=== PATIENT | male | born 1945 | race Caucasian/White ===

== ENCOUNTER 2024-12-07 09:22 | Outpatient (REF) | payer OTHER, SELFPAY ==
--- OUTSIDE RECORDS SUMMARY | 2024-12-07 10:13 | XMS_ITS | Continuity of Care Document ---
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 It does not include entries that were removed or entered in error. Problem Status Onset Date Problem Type Date of Resolution Comments Source Visual impairment Active 09/28/19 22 Condition Jun 13, 2022 Entered By: HUNG CARROLL Comment: followed by optometry [facility] Essential hypertension Active 09/28/19 16 Condition [facility] Hypertensive disorder Active 09/28/19 13 Condition [facility] Hyperlipidemia Active 09/28/19 09 Condition [facility] Routine General Medical Examination at a Health Care Facility * (ICD-9-CM V70.0) Active 09/28/19 08 Condition [facility] Environment contains chemical hazards Active Condition [facility] Exposure to potentially hazardous substance ([facility] [id number]) Active Condition Jan 05 4 Entered By: ADRIEL ROCHA Comment: Entered automatically through [facility] Problem List documentation program [facility] Hearing Loss, Partial * (ICD-9-CM 389.9) Active Condition [facility] Diagnosis: ICD-10-CM H54.7 Unspecified visual loss Active Diagnosis [facility] Diagnosis: ICD-10-CM Z46.0 Encounter for fit/adjst of spectacles and contact lenses Active Diagnosis [facility] Diagnosis: ICD-10-CM Z96.1 Presence of intraocular lens Active Diagnosis [facility] Medications Combined list of outpatient medications from Department of Defense and Veterans Affairs facilities.Medications provided include 1) outpatient medications from the last 15 months, and 2) patient-reported medications. Medication Details Route Status Patient Instructions Prescription Expires Prescription Number Last Dispense Date Ordering Provider Order Date Order Qty Source HYDROCHLORO THIAZIDE 25MG TAB TAKE ONE TABLET BY MOUTH EVERY DAY ORAL ACTIVE CARLY,HOW ALDAIR D 2012 [facility] LOVASTATIN 40MG TAB TAKE ONE TABLET BY MOUTH AT BEDTIME ORAL ACTIVE CARLY,HOW ALDAIR D 2009 [facility] TRIAMTERENE CAP,ORAL TAKE 37.5MG BY MOUTH EVERY DAY ORAL ACTIVE CARLY,HOW ALDAIR D 2012 [facility] Immunizations Combined list of available immunizations from the Department of Defense and Veterans Affairs facilities. Immunization Series Date Given Administered By Site Reaction Lot Number CVX Code Drug Clinical Trials Systems Administrator Status Comments Source COVID-19 (MODERNA), MRNA, LNP-S, PF, 50 MCG/0.5 ML (AGES 12+ YEARS) 3 2023 KIP OLIVEIRA RIGHT DELTO ID [id number] 312 complet ed [facility] INFLUENZA, HIGH-DOSE, TRIVALENT, PF 2023 KIP OLIVEIRA LEFT DELTO ID [id number] 135 complet ed [facility] RSV, BIVALENT, PROTEIN SUBUNIT RSVPREF, DILUENT RECONSTITUTED , 0.5 ML, PF 2023 KIP OLIVEIRA LEFT DELTO ID [id number] 305 complet ed sterile water diluent component [id number] [facility] INFLUENZA VACCINE, QUADRIVALENT, ADJUVANTED 2021 205 complet ed [facility] INFLUENZA, UNSPECIFIED FORMULATION 2020 88 complet ed [facility] COVID-19 (MODERNA), MRNA, LNP-S, PF, 100 MCG/0.5 ML DOSE 2 2020 207 complet ed MOD; [id number]; 1 [facility] COVID-19 (MODERNA), MRNA, LNP-S, PF, 100 MCG/0.5 ML DOSE 1 2020 207 complet ed MOD; [id number]; 1 [facility] TD (ADULT), 2 LF TETANUS TOXOID, PRESERVATIVE FREE, ADSORBED 2018 09 complet ed Site: Right Deltoid [facility] ZOSTER RECOMBINANT 2 2017 187 complet ed yes [facility] PNEUMOCOCCAL POLYSACCHARID E [id number] 2017 33 complet ed [facility] INFLUENZA, SEASONAL, INJECTABLE 2017 141 complet ed [facility] ZOSTER RECOMBINANT 1 2017 187 complet ed yes [facility] PNEUMOCOCCAL CONJUGATE PCV 13 2016 133 complet ed [facility] FLU,3 YRS (HISTORICAL) 2015 88 complet ed [facility] FLU,3 YRS (HISTORICAL) 2014 88 complet ed [facility] FLU,3 YRS (HISTORICAL) 2012 88 complet ed [facility] ZOSTER (HISTORICAL) 2012 121 complet ed [facility] FLU,3 YRS (HISTORICAL) 2010 88 complet ed [facility] FLU,3 YRS (HISTORICAL) 2009 88 complet ed [facility] NOVEL INFLUENZA-H1N 1-09, ALL FORMULATIONS 2009 128 complet ed [facility] FLU,3 YRS (HISTORICAL) 2008 88 complet ed [place] [facility] PNEUMOCOCCAL, UNSPECIFIED FORMULATION 2008 109 complet ed [facility] TDAP 2008 115 complet ed Right Deltoid [facility] FLU,3 YRS (HISTORICAL) 2007 88 complet ed [facility] FLU,3 YRS (HISTORICAL) 2006 88 complet ed [facility] influenza virus vaccine, split virus (incl. purified surface antigen)-reti red CODE 1 2004 Unknown, Provider [id number] Sanofi Pasteur ([facility]) complet ed influenza virus vaccine, split virus (incl. purified surface antigen)- retired CODE DoD anthrax vaccine 6 2003 Unknown, Provider [id number] [facility]) complet ed anthrax vaccine DoD typhoid Vi capsular polysaccharid e vaccine 1 2002 Unknown, Provider [id number] Sanofi Pasteur ([facility]) complet ed typhoid Vi capsular polysacch aride vaccine DoD tetanus and diphtheria toxoids, adsorbed, preservative free, for adult use (2 Lf of tetanus toxoid and 2 Lf of diphtheria toxoid) 1 2002 Unknown, Provider [id number] Sanofi Pasteur ([facility]) complet ed tetanus and diphtheri a toxoids, adsorbed, preservat emelyn free, for adult use (2 Lf of tetanus toxoid and 2 Lf of diphtheri a toxoid) [facility] influenza virus vaccine, whole virus 1 2002 Unknown, Provider [id number] 16 Laura-Shahab ([facility]) complet ed influenza virus vaccine, whole virus DoD anthrax vaccine 5 2002 Unknown, Provider [id number] 24 [facility] ([facility]) complet ed anthrax vaccine DoD vaccinia (smallpox) vaccine 2 2002 Unknown, Provider [id number] 75 [employer] ([facility]) complet ed vaccinia (smallpox ) vaccine DoD anthrax vaccine 4 2001 Unknown, Provider [id number] 24 [facility] ([facility]) complet ed anthrax vaccine DoD influenza virus vaccine, whole virus 1 2001 Unknown, Provider [id number] 16 Sanofi Pasteur ([facility]) complet ed influenza virus vaccine, whole virus DoD influenza virus vaccine, whole virus 1 2000 Unknown, Provider [id number] 16 Sanofi Pasteur ([facility]) complet ed influenza virus vaccine, whole virus DoD influenza virus vaccine, whole virus 1 2000 Unknown, Provider [id number] 16 [employer] ([facility]) complet ed influenza virus vaccine, whole virus [facility] hepatitis A vaccine, adult dosage 2 1999 Unknown, Provider [id number] Merck (MSD) complet ed hepatitis A vaccine, adult dosage DoD hepatitis A vaccine, adult dosage 2 1999 Unknown, Provider 52 () complet ed hepatitis A vaccine, adult dosage DoD anthrax vaccine 3 1999 Unknown, Provider [id number] [facility] [place] ([facility]) complet ed anthrax vaccine DoD anthrax vaccine 2 1999 Unknown, Provider [id number] 24 [employer] [place] ([facility]) complet ed anthrax vaccine DoD anthrax vaccine 1 1999 Unknown, Provider [id number] 24 [employer] [place] ([facility]) complet ed anthrax vaccine DoD meningococcal polysaccharid e vaccine (MPSV4) 1 1999 Unknown, Provider [id number] 32 Sanofi Pasteur ([facility]) complet ed meningoco ccal polysacch aride vaccine (MPSV4) DoD hepatitis A vaccine, adult dosage 1 1999 Unknown, Provider [id number] Merck (MSD) complet ed hepatitis A vaccine, adult dosage DoD influenza virus vaccine, whole virus 1 1998 Unknown, Provider [id number] 16 [facility] ([facility]) complet ed influenza virus vaccine, whole virus DoD typhoid vaccine, live, oral 1 1997 Unknown, Provider [id number] [facility] ([facility]) complet ed typhoid vaccine, live, oral DoD influenza virus vaccine, whole virus 1 1997 Unknown, Provider [id number] 16 Sanofi Pasteur ([facility]) complet ed influenza virus vaccine, whole virus DoD influenza virus vaccine, whole virus 1 1996 Unknown, Provider 16 () complet ed influenza virus vaccine, whole virus DoD yellow fever vaccine 1 1995 Unknown, Provider 37 () complet ed yellow fever vaccine DoD typhoid vaccine, parenteral, acetone-kille d, dried (U.S. ) 2 1994 Unknown, Provider 53 () complet ed typhoid vaccine, parentera l, acetone-k illed, dried ([place]S. ) DoD tetanus and diphtheria toxoids, adsorbed, preservative free, for adult use (2 Lf of tetanus toxoid and 2 Lf of diphtheria toxoid) 1 1992 Unknown, Provider 09 () complet ed tetanus and diphtheri a toxoids, adsorbed, preservat emelyn free, for adult use (2 Lf of tetanus toxoid and 2 Lf of diphtheri a toxoid) DoD trivalent poliovirus vaccine, live, oral 1 1973 Unknown, Provider 02 () complet ed trivalent polioviru s vaccine, live, oral DoD cholera vaccine, unspecified formulation 1 1973 Unknown, Provider 26 () complet ed cholera vaccine, unspecifi ed formulati on DoD plague vaccine 3 1972 Unknown, Provider 23 () complet ed plague vaccine DoD Vital Signs Combined list of inpatient and outpatient Vital Signs from Department of Defense and Veterans Affairs, ranging from 12 months to all on record, depending upon the facility. Vital Sign Value Date Comments Source SYSTOLIC BLOOD PRESSURE 163 06/20/20 24 08:24:48 [facility] DIASTOLIC BLOOD PRESSURE 80 024 08:24:48 [facility] PULSE OXIMETRY 98 06/20/2024 08:24:48 [facility] WEIGHT 249.9 06/20/2024 08:24:48 [facility] BMI 33 kg/m2 06/20/2024 08:24:48 [facility] PAIN 0 06/20/2024 08:24:48 [facility] HEIGHT 73 06/20/2024 08:24:48 [facility] TEMPERATURE 97.7 06/20/2024 08:24:48 [facility] PULSE 77 06/20/2024 08:24:48 [facility] RESPIRATION 16 06/20/2024 08:24:48 [facility] Encounters Combined list of: 1) Encounters from Department of Veterans Affairs facilities going backup to the last 18 months, not all VA inpatient encounters are included; 2) Encounters from the Department of Defense facilities going backup to 280 months. Location Location Details Encounter Type Encounter Number Reason For Visit Attending Provider ADM Date DC Date Status Disposition Source [facility] EYE EXAM&TX ESTAB PT 1/>VST [id number] Diagnos is: ICD-10- CM Z96.1 Presenc e of intraoc ular lens CARRIE DALAL 06/09 [facility] FIT SPECTACLES MULTIFOCAL [id number] Diagnos is: ICD-10- CM Z46.0 Encount er for fit/adj st of spectac les and contact lenses GABY JEAN 06/09 [facility] Outpatient Encounter [id number] 06/12 [facility] OFFICE O/P EST SF 10-19 MIN [id number] Diagnos is: ICD-10- CM H54.7 Unspeci fied visual loss MARIO CARROLL RD D 06/19 [facility] Outpatient Encounter [id number] 06/16 [facility] Outpatient Encounter [id number] 06/20 [facility] OFFICE O/P EST SF 10 MIN [id number] Diagnos is: ICD-10- CM H54.7 Unspeci fied visual loss MARIO CARROLL RD D 06/20 [facility] Social History Combined list of available smoking, tobacco, and other social history from Department of Defense and Veterans Affairs facilities. Social History Type Response Date Comment Sourc e Tobacco smoking status SCIS VA-TOBACCO NEVER USED 06/20/2024 [facility] History of tobacco use VA-TOBACCO NEVER USED 06/19/2023 [facility] [place] [facility] History of tobacco use FL-TOBACCO NEVER USED 06/13/2022 [facility] [place] [facility] History of tobacco use FL-TOBACCO NEVER USED 06/12/2021 [place] [facility] [place] [facility] History of tobacco use FL-TOBACCO NEVER USED 06/05/2020 [facility] [place] [facility] History of tobacco use FL-TOBACCO NEVER USED 06/01/2018 [facility] [place] [facility] History of tobacco use LIFETIME NON-TOBACCO USER 06/01[facility] History of tobacco use LIFETIME NON-TOBACCO USER [facility] History of tobacco use LIFETIME NON-TOBACCO USER 11/06[facility] History [facility] tobacco use LIFETIME NON-TOBACCO USER 10/13/2007 [facility] This section is an empty social history section. [facility] Plan of Care List of future care activities from Department of Veterans Affairs facilities. Additional future care activities may be listed in the Assessment and Plan section. Date/Time Care Activity Care Activity Detail Facili ty 12/27/2024 AMBULATORY - MEDICINE AMBULATORY - MEDICI [facility] [place] [facility]
--- OUTSIDE RECORDS SUMMARY | 2024-12-07 10:13 | XMS_ITS ---
Author Name [facility] Organization [facility] [place] Address [address] [place] [id number] Care Team Providers Care Stockroom Associate Name Role Phone KISHOR MENDOSA Primary Care Provider Unavailabl e Insurance Providers: All historical and current Section Date Range: From patient's date of to the date document was created. This section includes the names of all active insurance providers for the patient. Insurance Provider Type of Coverage Plan Name Start of Policy Coverage End of Policy Coverage Group Number Member ID Insurance Provider's Telephone Number Policy Velazquez's Name Patient's Relationship to Policy Velazquez [employer] PRESCRIPT ION [id number] Sep 28, 2017 [id number] JOE,RENÉE OMAS PATIENT MEDICARE (WN) MEDICARE (M) PART A Aug 28, 2012 PART A [id number] [facility] JOE,RENÉE OMAS PATIENT MEDICARE (WNR) MEDICARE (M) PART B Aug 28, 2012 PART B [id number] JC [phone] JOE,TH OMAS PATIENT [employer] RX PRESCRIPT ION RX Sep 28, 2022 [id number] [phone] JOE,TH OMAS PATIENT [facility] PLAN USP Sep 28, 2017 [facility] [id number] JOE,TH OMAS PATIENT [facility] PLAN DEEP Abdi Sep 28, 2017 [id number] JOE,TH OMAS PATIENT [facility] (WNR) EDMUNDO LUCIA(WN R) Sep 28, 2017 (WNR) [id number] RENÉE DIAZ OMJANICE PATIENT Selected Encounter This section includes the information on record at [place] for the Encounter. Date/Time Encounter Type Encounter Description Reason Provider Source Jun 20, 2024 08:30 AM OFFICE O/P EST SF 10 MIN PRIMARY CARE/MEDICINE ICD-10-CM H54.7 Unspecified visual loss KISHOR MENDOSA IHE Encounter Template Text not used by [place] Assessments - Encounter Diagnoses This section includes the primary and secondary diagnoses documented for the Encounter. Date/Time Primary/Secondary Diagnosis Diagnosis Name Provider Source Jun 20, 2024 08:43 AM PRIMARY Unspecified visual loss KISHOR MENDOSA [facility] [place] [facility] Jun 20, 2024 08:43 AM SECONDARY Encounter for immunization KIP OLIVEIRA [facility] Vital Signs: All taken on the encounter date This section contains inpatient and outpatient Vital Signs collected on the date of the Encounter. Date/Time Temperature Pulse Blood Pressure Respiratory Rate SP02 Pain Height Weight Body Mass Index Source Jun 20, 2024 08:41 AM 137/62 [place] [facility] [place] [facility] Jun 20, 2024 08:24 AM 97.7 77 163/80 16 98 0 73 249.9 [facility] [place] [facility] Immunizations: All administered on the encounter date This section contains immunizations associated to the Encounter. Immunization Series Date Issued Reaction Comments COVID-19 (MODERNA), MRNA, LNP-S, PF, 50 MCG/0.5 ML (AGES 12+ YEARS) 3 Jun 20, 2024 INFLUENZA, HIGH-DOSE, TRIVALENT, PF Jun 20, 2024 RSV, BIVALENT, PROTEIN SUBUN IT RSVPREF, DILUENT RECONSTITUTED, 0.5 ML, PF Jun 20, 2024 steril e water diluent component [id number] Social History: Smoking Status (Most current) and Tobacco Use (All prior to encounter date) This section includes the most current, and the historical, smoking and tobacco- related health factors from the [place] facility where the Encounter took place. Current Smoking Status This section includes the most current smoking, or tobacco-related health factor, from the [place] facility where the Encounter took place. Date/Time Current Smoking Status Comment Cathy italina Jun 20, 2024 08:30 AM VA-TOBACCO NEVER USED [place] [facility] [place] [facility] Tobacco Use History This section includes a history of the smoking, or tobacco-related health factors, that were collected on or before the date of the Encounter. The data comes from the [place] facility where the Encounter took place. Date/Time Smoking Status/Tobacco Use Comment F acility Jun 19, 2023 08:30 AM VA-TOBACCO NEVER USED [facility] [place] [facility] Jun 13, 2022 08:30 AM VA-TOBACCO NEVER USED [facility] [place] [facility] Jun 12, 2021 11:00 AM VA-TOBACCO NEVER USED [facility] [place] [facility] Jun 05, 2020 08:00 AM VA-TOBACCO NEVER USED [facility] [place] [facility] Jun 01, 2018 09:02 AM VA-TOBACCO NEVER USED [facility] [place] [facility] Jun 01, 2018 08:32 AM LIFETIME NON-TOBACCO USER [facility] [place] [facility] Jan 01, 2017 08:45 AM LIFETIME NON-TOBACCO USER [facility] [place] [facility] Nov 06, 2015 10:44 AM LIFETIME NON-TOBACCO USER [facility] [place] [facility] Oct 13, 2007 09:22 AM LIFETIME NON-TOBACCO USER [facility] [place] [facility] Encounter Notes: All associated encounter notes This section contains the clinical notes associated to the Encounter. Date/Time Encounter Note(s) Provider Source Jun 20, 2024 08:41 AM PHYSICIAN NOTE: LOCAL TITLE: MD NOTE STANDARD TITLE: PHYSICIAN NOTE DATE OF NOTE: JUN 20, 2024@08:41 ENTRY DATE: JUN 20, 2024@08:41:25 AUTHOR: KISHOR MENDOSA COSIGNER: URGENCY: STATUS: COMPLETED Patient Name: CHACHA DIAZ VITALS: Patient temperature: 97.7 F [36.5 C] (06/20/2024 08:24) Blood pressure: 137/62 (06/20/2024 08:41) Patient height: 73 in [185.4 cm] (06/20/2024 08:24) Patient weight: 249.9 lb [113.35 kg] (06/20/2024 08:24) Patient BMI: BMI: 33.0 Patient pulse: 77 (06/20/2024 08:24) Patient respiration: 16 (06/20/2024 08:24) Patient Pulse Oximetry: 98% (06/20/2024 08:24) Pain Ratin (06/20/2024 08:24) Active VA Medications: Active Outpatient Medications (including Supplies): Active Non-VA Medications Status 1) Non-VA HYDROCHLOROTHIAZIDE 25MG TAB 25MG BY MOUTH ACTIVE EVERY DAY 2) Non-VA LOVASTATIN 40MG TAB 40MG BY MOUTH AT BEDTIME ACTIVE 3) Non-VA TRIAMTERENE CAP,ORAL 37.5MG BY MOUTH EVERY DAY ACTIVE Remote Medications: Active Medications from Remote Data LOVASTATIN 40MG TAB Sig: Quantity: 30 Days Supply: 30 Original # of Refills: 11 Rx Expiration: Last filled 03/19/10 at [facility] [id number] #[id number] (Active) FLUOROURACIL 0.5% CREAM,TOP Sig: Quantity: 30 Days Supply: 21 Original # of Refills: 1 Rx Expiration: Last filled 12/28/09 at [facility] [id number] #[id number] (Active) LOVASTATIN 40MG TAB Sig: Quantity: 30 Days Supply: 30 Original # of Refills: 11 Rx Expiration: Last filled 05/17/10 at [facility] [address] #[id number] (Active) LOVASTATIN 40MG TAB Sig: Quantity: 30 Days Supply: 30 Original # of Refills: 11 Rx Expiration: Last filled 01/20/10 at [facility] [id number] #[id number] (Active) LOVASTATIN 40MG TAB Sig: Quantity: 30 Days Supply: 30 Original # of Refills: 11 Rx Expiration: Last filled 02/18/10 at [facility] [address] #[id number] (Active) LOVASTATIN 40MG TAB Sig: Quantity: 30 Days Supply: 30 Original # of Refills: 11 Rx Expiration: Last filled 12/28/09 at [facility] [address] #[id number] (Active) LOVASTATIN 40MG TAB Sig: Quantity: 30 Days Supply: 30 Original # of Refills: 11 Rx Expiration: Last filled 04/18/10 at [facility] [id number] #[id number] (Active) 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 Cameron History of present illness Patient followed by optometry for decreased vision. Feels well today with no complaints. Has eyeglasses which he wears sometimes Physical examination Well-developed well-nourished male no acute distress eomi, perrla Assessment and plan: 1. Decreased vision: Followed by optometry Plan: Continue above Follow-up 1 year recall Medication Reconciliation: Outpatient: Has the patient been taking medications as documented in the EMLR? YES: The patient has been taking medications as documented in the EMLR. Essential Medication List for Review used to complete this medication reconciliation. INCLUDED IN THIS LIST: Alphabetical list of active outpatient prescriptions dispensed from this [place] (local) and dispensed from another [place] or [place] facility (remote) as well as inpatient orders (local, pending and active), local clinic medications, locally documented non-VA medications, and local prescriptions that have or been discontinued in the past 90 days. - All changes in medications, including all non-VA/Herbal/OTC medications were entered into CPRS. - If there were any medications the patient should no longer take, they were discontinued. - The patient/caregiver was instructed to update this list, discard old lists, and take this list to the next appointment, whether with a VA or non-[place] provider. Follow Up Colonoscopy: Colonoscopy is due based on information available to this reminder. Colorectal cancer screening/surveillance will be stopped. Reason: age /es/ Kishor Mendosa MD Staff Physician Signed: 06/20/2024 08:43 KISHOR MENDOSA [place] [facility] [place] [facility] Jun 20, 2024 08:28 AM PREVENTIVE MEDICINE NURSING NOTE: LOCAL TITLE: CLINICAL REMINDERS/NURSING STANDARD TITLE: PREVENTIVE MEDICINE NURSING NOTE DATE OF NOTE: JUN 20, 2024@08:28 ENTRY DATE: JUN 20, 2024@08:28:27 AUTHOR: JAG OLIVEIRA COSIGNER: URGENCY: STATUS: COMPLETED CLINICAL REMINDERS/NURSING Has ADDENDA Sexual Orientation: The patient thinks of their sexual orientation as: Straight or Heterosexual Alcohol Use Screen (AUDIT-C): Alcohol Screen: SCREEN FOR ALCOHOL (AUDIT-C) An alcohol screening test (AUDIT-C) was negative (score=4). 1. How often did you have a drink containing alcohol in the past year? Consider a drink to be a 12 ounce can or bottle of regular beer, 8 ounces of malt liquor, a 5 ounce glass of table wine, or a 1.5 ounce shot of liquor (like scotch, gin, or vodka). Four or more times a week 2. How many drinks containing alcohol did you have on a typical day when you were drinking in the past year? One or two drinks 3. How often did you have six or more drinks on one occasion in the past year? Never Tobacco Use Screening: The patient has never used tobacco. Falls & Incontinence Screen: Falls Screen: During the past 12 months, did the patient report any falls? 4. No falls within the past year. Incontinence Screen: During the past 12 months, has the patient has any characteristics of incontinence (ability, voiding, leakage, etc.)? No incontinence. Homelessness/Food Insecurity Screen: In the past 2 months, have you been living in stable housing that you own, rent, or stay in as part of a household? Yes - Living in stable housing. Are you worried or concerned that in the next 2 months you may NOT have stable housing that you own, rent, or stay in as part of a household? No - Not worried about housing near future The reports the following: Within the past 12 months, you worried whether your food would run out before you got money to buy more. Never true Within the past 12 months, the food you bought just didn't last and you didn't have money to get more. Never true Depression Screening: Perform PHQ-2 A PHQ-2 screen was performed. The score was 0 which is a negative screen for depression. Over the past two weeks, how often have you been bothered by the following problems? 1. Little interest or pleasure in doing things Not at all 2. Feeling down, depressed, or hopeless Not at all Suicide Screen: C-SSRS Screening [place] Suicide Severity Rating Scale (C-SSRS) screener 1. Over the past month, have you wished you were or wished you could go to sleep and not wake up? No 2. Over the past month, have you had any actual thoughts of killing yourself? No 3. Over the past month, have you been thinking about how you might do this? Response not required due to responses to other questions. 4. Over the past month, have you had these thoughts and had some intention of acting on them? Response not required due to responses to other questions. 5. Over the past month, have you started to work out or worked out the details of how to kill yourself? Response not required due to responses to other questions. 6. If yes, at any time in the past month did you intend to carry out this plan? Response not required due to responses to other questions. 7. In your lifetime, have you ever done anything, started to do anything, or prepared to do anything to end your life (for example, collected pills, obtained a gun, gave away valuables, went to the roof but didn't jump)? No 8. If YES, was this within the past 3 months? Response not required due to responses to other questions. Advance Directive Screen MH AD: Patient has an up-to-date Advance Directive at an outside, non-va facility and was asked to forward a copy to his/her clinician. Comment: will get a copy to this [facility] (Optional) Whole Health Documentation: What matters the most to you? What motivates you to be healthy? (MAP) Response: I want to be self sufficient /es/ JAG OLIVEIRA LPN LPN Signed: 06/20/2024 08:49 06/20/2024 ADDENDUM STATUS: COMPLETED Influenza Immunization: Influenza, High-Dose, Trivalent, Preservative Free (Fluzone-Syringe) Administered: INFLUENZA, HIGH-DOSE, TRIVALENT, PF Date Administered: Jun 20, 2024 08:30 Series: Complete Baby Formula Mixer: SANOFI PASTEUR Lot: [id number] Exp Date: Mar 27, 2025 [facility]: [phone] Admin Route/Site: INTRAMUSCULAR/LEFT DELTOID Dosage: 0.5mL Vaccine Information Statement(s): INFLUENZA(FLU) VACC(INACTIVATED OR RECOMBINANT)VIS May 03, 2021 (CONGOLESE) Order By: Policy Administered By: Jag Oliveira The Influenza Vaccine Information Statement (VIS) was reviewed with the patient/caregiver which lists the benefits and risks of the vaccine and the risks of not receiving the Influenza vaccine. The patient/caregiver denied any prior severe reaction to this vaccine or its components or a severe allergic reaction, such as anaphylaxis, to any vaccine or any injectable therapy. The patient/caregiver gave verbal consent to receive the vaccine. Respiratory Syncytial Virus (RSV) Vaccine: RSV vaccine administered today. Administered: RSV, BIVALENT, PROTEIN SUBUNIT RSVPREF, DILUENT RECONSTITUTED, 0.5 ML, PF Date Administered: Jun 20, 2024 08:30 Series: Complete Baby Formula Mixer: [employer] Lot: [id number] Exp Date: Jan 25, 2025 [facility]: [id number] Admin Route/Site: INTRAMUSCULAR/LEFT DELTOID Dosage: 0.5mL Vaccine Information Statement(s): RSV (RESPIRATORY SYNCYTIAL VIRUS) VACCINE VIS Jul 16, 2023 (CONGOLESE) Order By: Policy Administered By: Jag Oliveira Comment: sterile water diluent component [id number] Vaccine Information Sheet (VIS) was given to the patient/caregiver, education regarding adverse reactions was discussed, as well as barriers to learning, if any, were acknowledged. COVID-19 Immunization: Moderna Monovalent (Spikevax) Administered: COVID-19 (MODERNA), MRNA, LNP-S, PF, 50 MCG/0.5 ML (AGES 12+ YEARS) Date Administered: Jun 20, 2024 08:30 Series: Series 3 Baby Formula Mixer: [employer]. Lot: [id number] Exp Date: February 18, 2025 [facility]: [id number] Admin Route/Site: INTRAMUSCULAR/RIGHT DELTOID Dosage: 0.5mL Vaccine Information Statement(s): COVID-19 MRNA VACCINE (12+ YRS) VACCINE VIS Jul 16, 2023 (CONGOLESE) Order By: Policy Administered By: Jag Oliveira Vaccine administered without complications. /pavan/ JGA OLIVEIRA LPN LPN Signed: 06/20/2024 08:53 JAG OLIVEIRA [place] [facility]
--- OUTSIDE RECORDS SUMMARY | 2024-12-07 10:13 | XMS_ITS | Data Portability ---
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 MEET 2 OUT OF 3 ELEMENTS: PROBLEMS, DATA OR RISK ELEMENT 1: PROBLEMS ADDRESSED 1 OR MORE CHRONIC ILLNESS WITH EXACERBATION OR 2 OR MORE STABLE CHRONIC ILLNESSES OR 1 UNDIAGNOSED NEW PROBLEM OR 1 ACUTE ILLNESS W/SYMPTOMS OR 1 ACUTE COMPLICATED INJURY ELEMENT 2: DATA MUST MEET 1 OF 3 CATEGORIES CATEGORY 1: REVIEW OF PRIOR EXTERNAL NOTES, REVIEW OF RESULTS, ORDERING OF EACH TEST, ASSESSMENT REQUIRING INDEPENDENT HISTORIAN OR CATEGORY 2: INDEPENDENT INTERPRETATION OF TESTS BY ANOTHER PHYSICIAN OR SPECIALIST OR CATEGORY 3: DISCUSSION OF MGT OR TEST INTERPRETATION W/EXTERNAL PHYSICIAN OR SPECIALIST ELEMENT 3: RISK RISK OF COMPLICATIONS AND/OR MORBIDITY OR MORTALITY OF PATIENT MANAGEMENT PROVIDER MUST THOROUGHLY DOCUMENT EACH ELEMENT THAT IS COVERED Not available 06/12/2023 13:59:12 06/10/2024 06/10/2024 [id number] [place] [id number] (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 MEET 2 OUT OF 3 ELEMENTS: PROBLEMS, DATA OR RISK ELEMENT 1: PROBLEMS ADDRESSED 1 OR MORE CHRONIC ILLNESS WITH EXACERBATION OR 2 OR MORE STABLE CHRONIC ILLNESSES OR 1 UNDIAGNOSED NEW PROBLEM OR 1 ACUTE ILLNESS W/SYMPTOMS OR 1 ACUTE COMPLICATED INJURY ELEMENT 2: DATA MUST MEET 1 OF 3 CATEGORIES CATEGORY 1: REVIEW OF PRIOR EXTERNAL NOTES, REVIEW OF RESULTS, ORDERING OF EACH TEST, ASSESSMENT REQUIRING INDEPENDENT HISTORIAN OR CATEGORY 2: INDEPENDENT INTERPRETATION OF TESTS BY ANOTHER PHYSICIAN OR SPECIALIST OR CATEGORY 3: DISCUSSION OF MGT OR TEST INTERPRETATION W/EXTERNAL PHYSICIAN OR SPECIALIST ELEMENT 3: RISK RISK OF COMPLICATIONS AND/OR MORBIDITY OR MORTALITY OF PATIENT MANAGEMENT PROVIDER MUST THOROUGHLY DOCUMENT EACH ELEMENT THAT IS COVERED Not available 06/10/2024 09:17:13 12/07/2024 12/07/2024 [id number] [place] [id number] (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 MEET 2 OUT OF 3 ELEMENTS: PROBLEMS, DATA OR RISK ELEMENT 1: PROBLEMS ADDRESSED 1 OR MORE CHRONIC ILLNESS WITH EXACERBATION OR 2 OR MORE STABLE CHRONIC ILLNESSES OR 1 UNDIAGNOSED NEW PROBLEM OR 1 ACUTE ILLNESS W/SYMPTOMS OR 1 ACUTE COMPLICATED INJURY ELEMENT 2: DATA MUST MEET 1 OF 3 CATEGORIES CATEGORY 1: REVIEW OF PRIOR EXTERNAL NOTES, REVIEW OF RESULTS, ORDERING OF EACH TEST, ASSESSMENT REQUIRING INDEPENDENT HISTORIAN OR CATEGORY 2: INDEPENDENT INTERPRETATION OF TESTS BY ANOTHER PHYSICIAN OR SPECIALIST OR CATEGORY 3: DISCUSSION OF MGT OR TEST INTERPRETATION W/EXTERNAL PHYSICIAN OR SPECIALIST ELEMENT 3: RISK RISK OF COMPLICATIONS AND/OR MORBIDITY OR MORTALITY OF PATIENT MANAGEMENT PROVIDER MUST THOROUGHLY DOCUMENT EACH ELEMENT THAT IS COVERED Not available 12/07/2024 09:12:06 Plan of Treatment Reminders Order Date Submit Date Provider Last Modified By Organization Details Last Modified Time Details Appointments FOLLOW UP 15 2024 09:00A M DR VERGARA Not available Not available Not available FOLLOW UP 15 2024 09:00A M DR VERGARA Not available Not available Not available Lab glycohemo globin, total, blood 2024 025 [facility], [address] [place] [address], [address], 12/07/2024 09:17:00 lipid panel, blood 2023 024 [facility], [place], [address], 06/10/2024 09:19:30 PSA, serum or plasma 2023 024 [facility] [place], [address], 06/10/2024 09:19:30 CMP, serum or plasma 2023 024 [facility], [place], [address], 06/10/2024 09:19:30 CBC 2023 024 [facility], [place], [address], 06/10/2024 09:19:30 Referral podiatris t referral 2023 024 [email or web address] Guillermo DP, [address] [facility], [place], [address], 01/12/2024 08:05:37 Procedures None recorded. Surgeries None recorded. Imaging None recorded. Medication Orders sildenafi l 50 mg tablet 2023 024 [facility], [address] [place] [address], [address], 12/14/2023 11:09:38 mupirocin 2 % topical ointment 2023 024 [facility], [address] [place], [place], [phone], 12/14/2023 11:08:29 amoxicill in 875 mg tablet [address] [id number], [address] [place], [place], [phone], 12/14/2023 10:40:42 Medrol (Alberto) 4 mg tablets in a dose pack [email or web address] [facility] [address] [facility], [address] [place], [place], [phone], 12/14/2023 10:41:10 Patient TargetsNo targets recorded. Patient Instructions Encounter Date Encounter Id Patient Instructions Last Modified By Organization Details Last Modified Time 12/07/2024 [id number] learning about high blood sugar Not available 12/07/2024 09:15:49 high blood pressure: care instructions Not available 12/07/2024 09:15:49 learning about high blood pressure Not available 12/07/2024 09:15:49 Reason for Referral [employer] Referral for Paro nychia of toe of right foot Referring Physician: Av Vergara, Internal Medicine, Encounter Date: 12/14/2023 Results Created Date Observation Date Name Description Value Unit Range Abnormal Flag Note LastModifiedBy Organization Detail LastModifiedTime Result Notes None recorded. Problems Name Problem SNOMED Code Status Onset Date Resolution Date Notes Provider Name and Address Organization Details Recorded Time Hyperchol esterolem ia 96926152 Active 2017 Not Available [facility] 2 12:47:40 Achilles tendiniti s 22892923 Active 2020 Not Available [facility] 2 12:47:40 Primary erectile dysfuncti on 111173246 Active 2021 Radha presley [facility] 5 08:08:20 Acute pharyngit is 136038287 Active 2022 Radha presley [facility] 5 08:08:24 Cough 44960892 Active 2023 Radha presley [facility] 5 08:08:24 Paronychi a of toe of right foot 864901289665 94948 Active 2023 Radha presley [facility] 5 08:08:24 Hyperglyc emia 82014196 Active 2024 Av Vergara, DO [address] [place] [address], [place], [address], [facility] 5 09:15:07 Essential hypertens ion 41492374 Active 2017 Not Available [facility] 2 12:47:40 Problem Notes None recorded. Procedures Surgical History Date Name Laterality Status Provider Name and Address Organization Details Recorded Time 7 Colonoscopy completed Oly Pérez [facility] 08/02/2018 09:56:10 Imaging Results None recorded. Procedure Notes None recorded. Medical Equipment None Reported. Allergies No known drug allergies Medications Name Sig Start Date Stop Date Status Note LastModified by Organization Details LastModified Time doxycycline hyclate 100 mg capsule 01/29 completed Not Available Not Available Not Available sildenafil 50 mg tablet Take 1 tablet every day by oral route as needed for 90 days. active Not Available Not Available No t Available azithromyci n 250 mg tablet TAKE 2 TABLETS BY MOUTH ONCE DAILY FOR 1 DAY AND THEN 1 TABLET BY MOUTH ONCE DAILY FOR 4 DAYS 06/10 completed Not Available Not Available Not Available fluticasone propionate 0.05 % topical cream 02/26 completed Not Available Not Available Not Available meloxicam 15 mg tablet TAKE 1 TABLET BY MOUTH EVERY DAY 09/18 completed Not Available Not Available Not Available lovastatin 40 mg tablet TAKE 1 TABLET BY MOUTH ONCE DAILY active Not Available Not Available No t Available Aspir-Low 81 mg tablet,molly yed release Take 1 tablet every day by oral route. 02/26 completed Not Available Not Available Not Available amlodipine 5 mg tablet TAKE 1 TABLET BY MOUTH EVERY DAY active Not Available Not Available No t Available cefadroxil 500 mg capsule TAKE 1 CAPSULE BY MOUTH TWICE DAILY FOR 10 DAYS 12/07 completed Not Available Not Available Not Available losartan 100 mg-hydrochl orothiazide 25 mg tablet TAKE 1 TABLET BY MOUTH ONCE A DAY active Not Available Not Available No t Available amoxicillin 875 mg tablet TAKE 1 TABLET BY MOUTH EVERY 12 HOURS FOR 7 DAYS 12/13 completed Not Available Not Available Not Available mupirocin calcium 2 % topical cream 01/29 completed Not Available Not Available Not Available mupirocin 2 % topical ointment APPLY SMALL AMOUNT TOPICALLY TO THE AFFECTED AREA THREE TIMES DAILY active Not Available Not Available No t Available methylpredn isolone 4 mg tablets in a dose pack FOLLOW PACKAGE DIRECTION S 12/13 completed Not Available Not Available Not Available tobramycin 0.3 %-dexametha sone 0.1 % eye drops,suspe nsion 01/29 completed Not Available Not Available Not Available Laxative (bisacodyl) 5 mg tablet TAKE 4 TABLETS BY MOUTH DIRECTED active Not Available Not Available No t Available GaviLyte-G 236 gram-22.74 gram-6.74 gram-5.86 gram oral solution MIX AND DRINK DIRECTED 12/07 completed Not Available Not Available Not Available Jublia 10 % topical solution with applicator Apply once a day TO affected nails active Not Available Not Available No t Available Shingrix (PF) 50 mcg/0.5 mL intramuscul ar suspension, kit 01/31 completed Not Available Not Available Not Available Fluzone High-Dose (PF) 180 mcg/0.5 mL intramuscul ar syringe 01/31 completed Not Available Not Available Not Available Fluarix Quad (PF) 60 mcg (15 mcg x 4)/0.5 mL IM syringe 08/28 completed Not Available Not Available Not Available Fluad Quad (6 5yr up)(PF) 60 mcg (15 mcg x 4)/0.5mL IM syringe ADM 0.5ML IM UTD 08/29 completed Not Available Not Available Not Available Vitals Date Recorded Body weight Heart rate Oxygen saturation Oxygen saturation in Arterial blood by Pulse oximetry Systolic blood pressure Diastolic blood pressure Provider Name and Address Organization Details Last Updated DateTime 3 777937. 72 g 75 /min 99 % 99 % 116 mm[Hg] 58 mm[Hg] Shalini Garcia [facility] 3 13:45:46 Date Recorded Body height Body mass index (BMI) Body weight Heart rate Oxygen saturation Oxygen saturation in Arterial blood by Pulse oximetry Systolic blood pressure Diastolic blood pressure Provider Name and Address Organization Details Last Updated DateTime 4 185.42 cm 33.5 kg/m2 161231. 46 g 81 /min 96 % 96 % 150 mm[Hg] 70 mm[Hg] Beatriz Villaseñor [facility] 4 10:42:38 Date Recorded Body height Body mass index (BMI) Body weight Heart rate Oxygen saturation Oxygen saturation in Arterial blood by Pulse oximetry Systolic blood pressure Diastolic blood pressure Provider Name and Address Organization Details Last Updated DateTime 4 185.42 cm 32.1 kg/m2 461201. 95 g 81 /min 98 % 98 % 110 mm[Hg] 64 mm[Hg] Beatriz Villaseñor [facility] 4 08:57:06 Date Recorded Body height Body mass index (BMI) Body weight Heart rate Oxygen saturation Oxygen saturation in Arterial blood by Pulse oximetry Systolic blood pressure Diastolic blood pressure Provider Name and Address Organization Details Last Updated DateTime 5 185.42 cm 33.2 kg/m2 299086. 76 g 64 /min 98 % 98 % 138 mm[Hg] 74 mm[Hg] Radha Lopez [facility] 5 09:04:06 Social History Question Answer Notes LastModified by Organizat ion Details LastModified Time Tobacco Smoking Status Never Smoker Not Available [facility] 07/31/2020 03:36:23 What Was The Date Of Your Most Recent Tobacco Screening? 12/07/2024 [email or web address] Information not available 12/07/2024 Do You Or Have You Ever Used Any Other Forms Of Tobacco Or Nicotine? No [email or web address] Information not available 12/14/2023 Sex: Unknown Functional Status None recorded. Mental Status None recorded. Family History Nothing Reported. Medical History No medical history recorded. Immunizations Vaccine Type Date Status Note Provider Nam e and Address Organization Details Recorded Time Influenza, split virus, quadrivalent, preservative 06/07/20 21 completed Av Vergara, DO [address] [place] [address], [place], [address] 06/08/2021 18:12:17 COVID-19, mRNA, LNP-S, PF, 100 mcg/0.5mL dose or 50 mcg/0.25mL dose 07/25/20 21 completed Oly presley [facility] 07/26/2021 13:40:40 COVID-19, mRNA, LNP-S, PF, 100 mcg/0.5mL dose or 50 mcg/0.25mL dose 01/22/20 22 completed Oly presley [facility] 01/22/2022 13:35:52 zoster live 05/29/20 18 completed Nicky presley [facility] 02/27/2020 09:57:07 pneumococcal polysaccharide PPV23 09/29/19 09 completed Nicky presley [facility] 02/27/2020 09:57:07 zoster live 08/16/20 18 sandeep presley [facility] 02/27/2020 09:57:07 Influenza, split virus, quadrivalent, preservative 07/05/20 19 completed Nicky presley [facility] 02/27/2020 09:57:07 Influenza, split virus, quadrivalent, preservative 06/06/20 20 completed Av Silva Vergara [address] [place], [address], [facility] 06/07/2020 15:01:45 Influenza, split virus, quadrivalent, preservative 05/29/20 18 completed Nicky presley [facility] 02/27/2020 09:57:07 Past Encounters Encounter ID Performer Location Encounter Start Date Encounter Closed Date Diagnosis/Indication Diagnosis SNOMED-CT Code Diagnosis ICD10 Code Diagnosis Note [id number] Av Vergara [facility] [address] [facility] [place] [address] 01/29/2018 09:31:55 01/29/2018 12:06:34 Hypertensive disorder 73342134 I10 Pneumonia 238215844 J18. 9 has evid for atypical infection will need macrolide [id number] Av Vergara [facility] [address] [facility] [address] 08/02/2018 09:47:34 08/02/2018 11:02:48 Essential hypertension 69745463 I10 doing well has occ higher readiongs but for most part is wnl will cont to have pt monitor Adult heal th examination 021277198 Z00.00 to stop his asa Screening for malignant neoplasm of colon 045494266 Z12.11 2017 done already Hypercholesterolemia 136 14754 E78.00 reviewed and is stabel will con t statin and rechk 1 year [id number] [address] Vergara [facility] [address] [facility] [address] 01/31/2019 10:00:11 01/31/2019 11:08:22 Hypercholesterolemia 56768593 E78.00 reviewed and is stabel will con t statin and rechk 1 year Essential hypertension 67360560 I10 doing well has occ higher readiongs but for most part is wnl will cont to have pt monitor [id number] Av Vergara [facility] [address] [facility] [address] 08/03/2019 08:52:01 08/03/2019 09:47:07 Hypercholesterolemia 63942197 E78.00 reviewed and is stabel will con t statin and rechk 1 year Essential hypertension 29699838 I10 doing well has occ higher readings but for most part is wnl will cont to have pt monitor and review of his home bps he is doing ok avg 140/60's [id number] Av Vergara [facility] [address] [facility] [address] 02/27/2020 09:55:22 02/27/2020 10:29:19 Essential hypertension 67235914 I10 doing well has occ higher readings but for most part is wnl will cont to have pt monitor and review of his home bps he is doing ok avg 140/60's Hypercholesterolemia 136 06791 E78.00 reviewed and is stabel will con t statin and rechk 1 year Primary er ectile dysfunction 870167447 N52.9 [id number] [facility] [address] [facility] [address] 08/29/2020 09:10:08 08/29/2020 12:04:21 Hypercholesterolemia 33532621 E78.00 reviewed and is stabel will con t statin and rechk 1 year Essential hypertension 49019555 I10 doing well has occ higher readings but for most part is wnl will cont to have pt monitor and review of his home bps he is doing ok avg 130-140/60 's [id number] [facility] [address] [facility] [address] 03/15/2021 08:45:54 03/15/2021 09:35:36 Hypercholesterolemia 59431129 E78.00 reviewed and is stable will con t statin and rechk 1 year LDL 108 HDL 44 Essential hypertension 39467248 I10 doing well has occ higher readings but for most part is wnl will cont to have pt monitor and review of his home bps he is doing ok avg 130-140/60 'ssee copyhe will cont to check but if bp is running high at home we will need to adjust this Left Achil les tendinitis 0060945105 24202 M76.62 we will treat with strap and night time splint as well as stretches showed how [id number] Av Vergara DO [facility] [address] [facility] [address] [address] 09/18/2021 08:29:41 09/18/2021 12:22:35 Essential hypertension 31568083 I10 doing well has occ higher readings but for most part is wnl will cont to have pt monitor and review of his home bps running in the 160's systolicsw e will add amlodipine 5mgsee copyhe will cont to check but if bp is running high at home we will need to adjust this [id number] Av Vergara DO [facility] [address] [facility] [address] [address] 03/18/2022 08:22:55 03/21/2022 09:05:18 Essential hypertension 91498618 I10 doing well has occ higher readings but for most part is wnl will cont to have pt monitor and review of his home bps running in the 160's systolicsw e will add amlodipine 5mgsee copyhe will cont to check but if bp is running high at home we will need to adjust this Hypercholesterolemia 136 68219 E78.00 reviewed and is stable will con t statin and rechk 1 year LDL 108 HDL 44 Primary er ectile dysfunction 605676369 N52.9 [id number] ABAD LOMBARDI [facility] [address] [facility] [address] 02/20/2023 09:20:59 02/20/2023 13:57:43 Acute pharyngitis 674222673 J02.8 start on amox and medrol [id number] Av Vergara DO [facility] [address] [facility] [address] [address] 06/12/2023 13:34:18 06/12/2023 15:01:23 Essential hypertension 36080117 I10 doing well has occ higher readings but for most part is wnl will cont to have pt monitor and review of his home bps running in the 160's systolicsa mlodipine 5mgsee copyhe will cont to check but if bp is running high at home we will need to adjust this Hypercholesterolemia 136 02206 E78.00 reviewed and is stable will con t statin and rechk 1 year LDL 108 HDL 44 [id number] Av Vergara [facility] [address] [facility] [address] 12/14/2023 10:33:07 12/14/2023 11:44:53 Essential hypertension 77042689 I10 doing well has occ higher readings but for most part is wnl will cont to have pt monitor and review of his home bps running in the 160's systolicsa mlodipine 5mgsee copyhe will cont to check but if bp is running high at home we will need to adjust this Hypercholesterolemia 136 51302 E78.00 reviewed and is stable will con t statin and rechk 1 year LDL 108 HDL 44 Paronychia of toe of right foot 5418389244 9291771 L03.031 will also refer to podiatry Primary er ectile dysfunction 558215497 N52.9 [id number] Vergara [facility] [address] [facility] [address] 06/10/2024 08:50:25 06/10/2024 09:23:11 Essential hypertension 35129699 I10 doing well has occ higher readings but for most part is wnl will cont to have pt monitor and review of his home bps running in the 160's systolicsa mlodipine 5mgsee copyhe will cont to check but if bp is running high at home we will need to adjust this Hypercholesterolemia 136 47192 E78.00 reviewed and is stable will con t statin and rechk 1 year LDL 108 HDL 44 Depression screening 171 801075 Z13.31 neg [id number] Av Vergara [facility] [address] [facility] [address] 12/07/2024 08:49:29 12/07/2024 09:19:14 Depression screening 564938772 Z13.31 neg Essential hypertension 11733624 I10 home bps are good cont exercise and no chnge in current medsbp 130s/70s prior doing well has occ higher readings but for most part is wnl will cont to have pt monitor and review of his home bps running in the 160's systolicsa mlodipine 5mgsee copyhe will cont to check but if bp is running high at home we will need to adjust this Hyperglycemia 47173699 R 73.9 Health Concerns Section Related Observation LastModified by Organization Detai ls LastModified Time None Recorded Concern Status LastModified by Organization Details LastModified Time None Recorded Advance Directives Directive None Recorded Payers Encounter Date Sequence Insurance Name Policy Number Policy Velazquez Covered Member ID Velazquez Member ID Guarantor Name 02/20/2023 1 [facility] [employer] (POS) [id number] Darwin Mercedes [id number] Darwin Mercedes 06/12/2023 1 [facility] [employer] (POS) [id number] Darwin Mercedes [id number] Darwin Mercedes 12/14/2023 1 [facility] [employer] (POS) [id number] Darwin Mercedes [id number] Darwin Mercedes 06/10/2024 1 [facility] [employer] (POS) [id number] Darwin Mercedes [id number] Darwin Mercedes 12/07/2024 1 [facility] [employer] (POS) [id number] Darwin Mercedes [id number] Darwin Mercedes Notes Date Note Type Note Provider Name and Address Organization Details Recorded Time 3 text/htm l c/o sore throat pt's reports sore throat for 5 days with chest congestionthe patient reports that he has tried a few OTC medicationthe patient has mild chest tightness and a intermittent dry coughnegative COVID-19 testingno pink eye which is also going around agreed to start amox and medrol for treatment ABAD LOMBARDI [address] [place], [address], [facility] 02/20/2023 11:39:15 3 text/htm l here for rechkfeels well no major issueshome bp are running 130-40/60no cp no sobbowels okbladder is fair some nocturia mild Av Vergara DO [address] [place], [address], [facility] 06/12/2023 14:08:33 4 text/htm l here for rechk and is doing ok overallno major issues and has an ingrown toenail Av Ascencio DO Rakesh [address] [place] [address], [address], [facility] 12/14/2023 11:12:24 4 text/htm l Care Management - HypertensionReported bypatient.Self Care:not under emotional stress Severity:symptoms are improving; does not interfere with daily activities Associated Symptoms:no dizziness; no lightheadedness; no chest pain; no shortness of breath; no palpitations; no edema; no calf muscle cramps; no blurred vision; no confusion; no headaches; no fatigue doing well feel s well ] no cp no sobstates bp at home are okreviewed home readingstolerates amlodipine and lovastat Av DunnLizzeth Vergara DO [address] [place] [address], [address], [facility] 06/10/2024 09:22:31 5 text/htm l hhere for recchk and bp eval home readings are doing okno issues with medsno cp no sobfeels well otherwise doing well feel s well ] no cp no sobstates bp at home are okreviewed home readingstolerates amlodipine and lovastat Av Vergara DO [address] [place] [address], [phone], [facility] 12/07/2024 09:19:13 5 text/htm l Care Management - HypertensionReported bypatient.Self Care:not under emotional stress Severity:symptoms are improving; does not interfere with daily activities Associated Symptoms:no dizziness; no lightheadedness; no chest pain; no shortness of breath; no palpitations; no edema; no calf muscle cramps; no blurred vision; no confusion; no headaches; no fatigue Av Vergara DO [address] [place] [address], [phone], [facility] 12/07/2024 09:19:13
--- OUTSIDE RECORDS SUMMARY | 2024-12-07 10:13 | XMS_ITS | Continuity of Care Document ---
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 Procedures None recorded . Surgeries None recorded . Imaging None recorded . Medication Orders None recorded . Patient TargetsNo targets recorded. Patient Instructions Encounter Date Encounter Id Patient Instructions Last Modified By Organization Details Last Modified Time 12/07/2024 [id number] learning about high blood sugar Not available 12/07/2024 09:15:49 high blood pressure: care instructions Not available 12/07/2024 09:15:49 learning about high blood pressure Not available 12/07/2024 09:15:49 Reason for Referral None Reported. Problems Name Problem SNOMED Code Status Onset Date Resolution Date Notes Provider Name and Address Organization Details Recorded Time Hyperchol esterolem ia 27383222 Active 2017 Not Available [facility] 2 12:47:40 Achilles tendiniti s 24289046 Active 2020 Not Available [facility] 2 12:47:40 Primary erectile dysfuncti on 544149500 Active 2021 Radha presley [facility] 5 08:08:20 Acute pharyngit is 786698915 Active 2022 Radha presley [facility] 5 08:08:24 Cough 40703306 Active 2023 Radha presley [facility] 5 08:08:24 Paronychi a of toe of right foot 980060970932 06558 Active 2023 Radha presley [facility] 5 08:08:24 Hyperglyc emia 36353568 Active 2024 Av Vergara, DO [address] [place] [address], [place], [phone], [facility] 5 09:15:07 Essential hypertens ion 69640544 Active 2017 Not Available [facility] 2 12:47:40 Problem Notes None recorded. Procedures Surgical History Date Name Laterality Status Provider Name and Address Organization Details Recorded Time 7 Colonoscopy completed Oly Pérez [facility] 08/02/2018 09:56:10 Imaging Results None [...] Available Not Available Vitals Date Recorded Body height Body mass index (BMI) Body weight Heart rate Oxygen saturation Oxygen saturation in Arterial blood by Pulse oximetry Systolic blood pressure Diastolic blood pressure Provider Name and Address Organization Details Last Updated DateTime 5 185.42 cm 33.2 kg/m2 646129. 76 g 64 /min 98 % 98 % 138 mm[Hg] 74 mm[Hg] Radha Lopez [facility] 5 09:04:06 Social History Question Answer Notes LastModified by Organizat ion Details LastModified Time Tobacco Smoking Status Never Smoker Not Available [facility] 07/31/2020 03:36:23 What Was The Date Of Your Most Recent Tobacco Screening? 12/07/2024 [email or web address] Information not available 12/07/2024 Do You Or Have You Ever Used Any Other Forms Of Tobacco Or Nicotine? No [email or web address] Information not available 12/14/2023 Sex: Unknown Functional Status None recorded. Mental Status None recorded. Family History Nothing Reported. Medical History No medical history recorded. Immunizations Vaccine Type Date Status Note Provider Nam e and Address Organization Details Recorded Time Influenza, split virus, quadrivalent, preservative 06/07/20 21 completed Av Vergara DO [address] [facility], [place], [address], [facility] 06/08/2021 18:12:17 COVID-19, mRNA, LNP-S, PF, 100 mcg/0.5mL dose or 50 mcg/0.25mL dose 07/25/20 21 completed Oly presley [facility] 07/26/2021 13:40:40 COVID-19, mRNA, LNP-S, PF, 100 mcg/0.5mL dose or 50 mcg/0.25mL dose 01/22/20 22 completed Oly presley [facility] 01/22/2022 13:35:52 zoster live 05/29/20 18 completed Nicky presley [facility] 02/27/2020 09:57:07 pneumococcal polysaccharide PPV23 09/29/19 09 completed Nicky presley [facility] 02/27/2020 09:57:07 zoster live 08/16/20 18 completed Nicky presley [facility] 02/27/2020 09:57:07 Influenza, split virus, quadrivalent, preservative 07/05/20 19 completed Nicky presley [facility] 02/27/2020 09:57:07 Influenza, split virus, quadrivalent, preservative 06/06/20 20 completed Av Vergara DO [address] [place] [address], [phone], [facility] 06/07/2020 15:01:45 Influenza, split virus, quadrivalent, preservative 05/29/20 18 completed Nicky presley [facility] 02/27/2020 09:57:07 Past Encounters Encounter ID Performer Location Encounter Start Date Encounter Closed Date Diagnosis/Indication Diagnosis SNOMED-CT Code Diagnosis ICD10 Code Diagnosis Note [id number] Av Vergara DO [facility] [address] [place] [address],[place] [address] 12/07/2024 08:49:29 12/07/2024 09:19:14 Depression screening 077520194 Z13.31 neg Essential hypertension 71194034 I10 home bps are good cont exercise [...] we will need to adjust this Hyperglycemia 14756098 R 73.9 Health Concerns Section Related Observation LastModified by Organization Detai ls LastModified Time None Recorded Concern Status LastModified by Organization Details LastModified Time None Recorded Payers Encounter Date Sequence Insurance Name Policy Number Policy Velazquez Covered Member ID Velazquez Member ID Guarantor Name 12/07/2024 1 [facility] (POS) [id number] Darwin Long [id number] Darwin Long Notes Date Note Type Note Provider Name and Address Organization Details Recorded Time 5 text/htm l hhere for recchk and bp eval home readings are doing okno issues with medsno cp no sobfeels well otherwise doing well feel s well ] no cp no sobstates bp at home are okreviewed home readingstolerates amlodipine and lovastat Av Vergara DO [address] [place] [address], [phone], [facility] 12/07/2024 09:19:13 5 text/htm l Care Management - HypertensionReported bypatient.Self Care:not under emotional stress Severity:symptoms are improving; does not interfere with daily activities Associated Symptoms:no dizziness; no lightheadedness; no chest pain; no shortness of breath; no palpitations; no edema; no calf muscle cramps; no blurred vision; no confusion; no headaches; no fatigue Av Vergara DO [address] [place] [address], [phone], [facility] 12/07/2024 09:19:13
[2024-12-07 14:27] LABS: Estimated Average Glucose 105 mg/dL; Hemoglobin A1C 124.7697 umol/L; Hemoglobin A1c % 5.3 % (<6.0)
== END 2024-12-07 09:23 | disposition home or self-care (01) ==
LOC: HO.MANLDS 09:22
PROVIDERS: Visit Provider Internal Medicine
DX: R73.9 Hyperglycemia, unspecified (principal)
CPT/HCPCS: 36415; 83036